=== PATIENT | female | born 1975 | race African-American/Black ===

== ENCOUNTER 2018-12-19 09:18 | Day surgery (SDC) | payer OTHER ==
[2018-12-19 10:31] VITALS: BMI 32.1
[2018-12-19] MEDS ORDERED: BENZOIN/ALOE VERA/STORAX/TOLU 58 ML BOTTLE ONE (11:10)
[2018-12-19] MEDS ORDERED: THROMBIN (RECOMBINANT) 5,000 UNIT VIAL TP ONE (11:10)
[2018-12-19] MEDS ORDERED: fentaNYL CITRATE 250 MCG/5 ML VIAL ONE (11:33)
[2018-12-19] MEDS ORDERED: MIDAZOLAM HCL 2 MG/2 ML SINGLE DOSE VIAL ONE (11:33)
[2018-12-19] MEDS ORDERED: SUCCINYLCHOLINE CHLORIDE 200 MG/10 ML VIAL ONE (11:53)
--- NOTE | 2018-12-19 12:02 | PN ---
Progress Note (short form) - Note Progress Note: 43F presented for C4-5, C5-C6 anterior cervical discectomy and instrumented fusion. Case cancelled due to difficulty of intubation and anticipated post-operative swelling. Pt. will be observed in PACU and will be discharged home when airway is deemed stable per anesthesia team. Surgery will be rescheduled for a later date. Chago David MD (Orthopaedic Surgery).
--- NOTE | 2018-12-19 12:04 | OP ---
Operative Note - Note: Operative Date: 12/19/18 Pre-Operative Diagnosis: 1. C4-C5, C5-C6 intervertebral disc herniations with radiculopathy. 2. Cervical spinal stenosis with myelopathy. 3. Axial instability cervical spine Operation: C4-C5, C5-C6 ACDF Implants: C4-C5 cage: C5-C6 cage: Plae: Post-Operative Diagnosis: Same as Pre-op Surgeon: Chago David Technical Assistance Consultant: Zane David Anesthesiologist/ANTHROPOLOGIST PHYSICAL: Michael Hopkins Anesthesia: General Specimens Removed: C4-C5, C5-C6 discs Estimated Blood Loss (mls): 30 Fluid Volume Replaced (mls): 1,000 (Crystalloid) Operative Report Dictated: Yes
[2018-12-19] MEDS ORDERED: RACEPINEPHRINE IH SOL 2.25% 11.25 MG/0.5 ML VIAL NEB PRN (12:53)
[2018-12-19] MEDS ORDERED: ONDANSETRON 4 MG/2 ML VIAL IVPUSH PRN (12:53)
[2018-12-19] MEDS ORDERED: LACTATED RINGERS SOLUTION 1,000 ML IV SCH (13:00)
[2018-12-19 14:56] VITALS: TEMP 98.2
[2018-12-19 14:57] VITALS: BP 118/84; PULSE 72
[2018-12-20] MEDS ORDERED: LEVOTHYROXINE PO SCH ×2 (07:00→10:00)
--- NOTE | 2018-12-20 07:46 | OP ---
DATE OF OPERATION: 12/19/2018 The patient was planned to undergo C4-C5 and C5-C6 anterior cervical discectomy and instrumented fusion today. 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 This combination led to difficulty with intubation. After multiple unsuccessful attempts at passing endotracheal tube, discussion was held with the anesthesiology team as to whether they should proceed with a fiberoptic intubation. My concern was that the failed attempts at intubation would render the patient with increased swelling of the airway and associated soft tissue structures. This, in combination with elective cervical spine surgery could have led to enough local soft tissue swelling postoperatively that the airway may have been compromised, and the patient may have needed further airway protection in an ICU setting. For these reasons, we elected to cancel the surgical procedure for today. The patient will be monitored in the PACU. When her airway is deemed stable by the anesthesiology team, she will be discharged home. We will see her back in the office in the outpatient setting, and we will electively schedule cervical spine surgery in the future. This decision was made in conjunction with three attending anesthesiologists and in conjunction with senior orthopedic surgeon. MD BRIGID Bettencourt/[id number]
[2018-12-26] MEDS ORDERED: ERGOCALCIFEROL (VITAMIN D2) 50,000 UNIT CAPSULE (FP) PO SCH (10:00)
== END 2018-12-19 16:30 | disposition home or self-care (01) ==
LOC: FM/S 09:18 → UNDOADMIN 09:18 → FASUSAT 09:18 → EDSTATUS 12:00 → UNDODISIN 16:30 → FASUSAT 16:30
PROVIDERS: ATTEND Orthopaedic Surgery Orthopaedic Surgery of the Spine
PROC: 0RB30ZZ Excision of Cervical Vertebral Disc, Open Approach (ICD-10-PCS; principal; 2018-12-19 12:00)
DX: Z53.09 Procedure and treatment not carried out because of other contraindication (principal); M50.122 Cervical disc disorder at C5-C6 level with radiculopathy
CPT/HCPCS: 84703

== ENCOUNTER 2019-04-15 06:11 | Inpatient (IN) | payer OTHER ==
[2019-04-12 15:41] VITALS: BMI 32.5
[2019-04-15 06:53] LABS: ALBUMIN 3.5 g/dl (3.4-5.0); BILIRUBIN,TOTAL 0.4 mg/dL (0.2-1); BLOOD UREA NITROGEN 18.7 mg/dL (7-18); CALCIUM 9.4 mg/dL (8.5-10.1); CREATININE 0.7 mg/dL (0.55-1.3); POTASSIUM 4.6 mmol/L (3.5-5.1); TOT PROT 7.4 g/dl (6.4-8.2)
[2019-04-15] MEDS ORDERED: HEPARIN NA (PORCINE) 5,000 UNITS/ML 1ML VIAL ONE (07:03)
[2019-04-15] MEDS ORDERED: THROMBIN (BOVINE) 5,000 UNIT VIAL TP ONE (07:03)
[2019-04-15] MEDS ORDERED: BENZOIN TINCTURE SWABSTICK TP ONE (07:03)
[2019-04-15] MEDS ORDERED: PROPOFOL 20 ML ONE ×14 (07:23→10:31)
[2019-04-15] MEDS ORDERED: SUCCINYLCHOLINE CHLORIDE 200 MG/10 ML SYRINGE ONE (07:24)
[2019-04-15] MEDS ORDERED: KETAMINE HCL 200 MG/20 ML VIAL ONE (07:24)
[2019-04-15] MEDS ORDERED: ceFAZolin SODIUM 1 GM VIAL ONE ×2 (07:27→17:31)
[2019-04-15] MEDS ORDERED: DEXAMETHASONE SOD PHOSPHATE 4 MG/1 ML VIAL ONE ×3 (07:27→10:40)
[2019-04-15] MEDS ORDERED: KETOROLAC TROMETHAMINE 30 MG/1 ML VIAL ONE (07:27)
[2019-04-15] MEDS ORDERED: LIDOCAINE HCL/PF 2% SDV 5ML VIAL ONE ×2 (07:27→10:40)
[2019-04-15] MEDS ORDERED: ONDANSETRON 4 MG/2 ML VIAL ONE ×2 (07:27→10:40)
[2019-04-15] MEDS ORDERED: SODIUM CHLORIDE 0.9% P/F 10 ML VIAL IJ ONE (07:27)
[2019-04-15] MEDS ORDERED: MIDAZOLAM HCL 2 MG/2 ML SINGLE DOSE VIAL ONE ×2 (07:32)
[2019-04-15] MEDS ORDERED: DEXMEDETOMIDINE HCL 200 MCG/2 ML IVPB ONE (07:52)
[2019-04-15] MEDS ORDERED: VANCOMYCIN 1,000 MG VIAL (RESTRICTED TO ID ONLY) IVPB ONE ×2 (07:58→09:04)
--- NOTE | 2019-04-15 08:03 | HP ---
History & Physical Update - History History: No Change - Physical Physical: No Change - Assessment Assessment: No Change - Plan Plan: No Change (no change since last visit with Dr David 04/14/19)
[2019-04-15] MEDS ORDERED: ceFAZolin SODIUM 1 GM VIAL IVPB ONE (08:58)
[2019-04-15] MEDS ORDERED: EPHEDRINE SULFATE/0.9% NACL/PF 50 MG/10 ML SYRINGE NR ONE (09:12)
[2019-04-15] MEDS ORDERED: LABETALOL HCL 5 MG/1 ML (100MG/20 ML VIAL) ONE (09:43)
[2019-04-15] MEDS ORDERED: TRANEXAMIC ACID 1000 MG/10 ML VIAL ONE (10:49)
[2019-04-15] MEDS ORDERED: oxyCODONE HCL 5 MG TABLET PO PRN ×2 (11:07)
[2019-04-15] MEDS ORDERED: ACETAMINOPHEN 325 MG TABLET (FP) PO PRN (11:07)
[2019-04-15] MEDS ORDERED: ONDANSETRON 4 MG/2 ML VIAL IVPUSH PRN (11:07)
[2019-04-15] MEDS ORDERED: diphenhydrAMINE HCL 25 MG CAPSULE (FP) PO PRN (11:07)
[2019-04-15] MEDS ORDERED: LACTATED RINGERS SOLUTION 1,000 ML/1,000 ML INFUS.BAG IV SCH (11:15)
--- NOTE | 2019-04-15 11:34 | OP ---
Operative Note - Note: Operative Date: 04/15/19 Pre-Operative Diagnosis: Cervical stenosis Operation: C5-C6 anterior cervical discectomy and fusion Post-Operative Diagnosis: Same as Pre-op Surgeon: Chago David Solid Glass Rod Dowel Machine Operator: Yoon Flower Anesthesiologist/LOCAL DRIVER: Enmanuel Avila Anesthesia: General Specimens Removed: C5,6 disc Estimated Blood Loss (mls): 100 Drains & Tubes with Location: ISMA drain at anterior neck Drains, Volume Out (mls): 100 (urine) Fluid Volume Replaced (mls): 2,000 Operative Report Dictated: Yes
--- NOTE | 2019-04-15 11:39 | SURG ---
Surgery Clean Room Technician Note Clean Room Technician: Yoon Flower PA-C Date of Service: 04/15/19 Diagnosis: cervical stenosis Procedure: C5-C6 anterior cervical discectomy and fusion I was present for the entirety of the operative procedure. For further detail, please refer to operative report.
[2019-04-15] MEDS: MORPHINE SULFATE 2 MG/ML VIAL IVPUSH PRN ×2 (13:24→20:06)
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
--- NOTE | 2019-04-15 14:54 | OP ---
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 OPERATION PERFORMED: C5-6 anterior cervical diskectomy and fusion. ANESTHESIA: General. ANTIBIOTICS GIVEN: Kefzol 2 g, 1 g vancomycin, 10 mg of Decadron, 1 g tranexamic acid given. OPERATION DETAILS: Patient correctly identified. Brought to the operating room. Cervical spine was prepped and draped in the routine manner with Betadine scrub solution, wiped off with alcohol, DuraPrep applied. Patient in the supine position was subjected to an awake fiberoptic intubation, which proceeded to an uneventful intubation. A rolled towel was placed behind the scapulae. The neck was extended. The previous surgery scar in the neck anteriorly for the previous thyroidectomy was noted. The tissues were thickened and indurated. The skin was cleansed with Betadine scrub solution, wiped off with alcohol, DuraPrep applied, the window drape applied. Time-out was called. INDICATIONS: This lady has developed ongoing intractable axial neck discogenic disease of the cervical spine but associated with it some slowly progressive, increasing myelopathic clinical findings noted. The difficulty of decision here was based on the imaging to correlate with the clinical picture. A careful preoperative clinical evaluation today prior to any surgical intervention revealed the presence of C6 radiculopathy on the right, but in association with this, the MRIs revealed a capacious canal, the disk space narrowing worse at C5-6, but I planned to evaluate the C4-5 disk based on the anterior appearance of the vertebral structures indicating discogenic disease. This would help me delineate whether to proceed with a C4-5 diskectomy as well. I booked her with the consent to state C4-5 and C5-6. An oblique incision was made at the lines of Eliz well above the thyroid scar. Even with this is significant scarring of the soft tissue deep to the platysma. The platysma was split transversely. Once this had been performed, the investing layer of fascia was opened proximally and distally. One large epidural vein was ligated and tied off. The skin and subcutaneous tissues were oozing and moist accordingly. This visceral and vascular plane was opened, and with finger palpation, the anterior body was carefully palpated. The large lump of calcified disk was noted at the C5-6 level. We knew this because a mayank of needle was placed into that disk, and a lateral fluoroscopic x-ray revealed the 5-6 as the major problem. Looking at the new x-rays today on the x-ray table taken immediately reveal the presence of significant bone changes at C5-6. No significant bone changes seen in C4-5. The decision was then borne out at that point in time to not do anything to C4-5, leave it as C4, 5, 6 level. This is where the pathology is. The dissection was taken continued furtherly by lifting the longus coli with unipolar Bovie off the bone. Hemostasis was achieved. The problem is the tissues were very moist and oozing. I repeated this as ultimately the blood loss for this case was 110 mL. The large anterior osteophyte was removed. The disk was then resected using curettes as well as a [place]o bur. A rectangle was cut into the bone bed. Broaddus distractors were utilized to help with retraction as well as distraction. Once the distraction device helped open up the rectangle for the interbody space, the uncovertebral joints were resected. The dissection was taken down right down to the posterior longitudinal ligament. The theca was completely exposed from right to left accordingly. Epidural bleeding was prodigious. Gelfoam with thrombin with Gelfoam inserted into the interbody space. This brought about adequate control. The wounds were thoroughly lavaged throughout the procedure. A size 7 cage, Fortilink cage, packed with bone marrow putty was inserted. This was placed into the interbody space. The Capsar pins were released. Ligamentotaxis brought about solid fixation of the cage within the confines of the interbody space. A size 16 plate was applied. This was a Precision plate. Gave very adequate solid fixation. X-rays were taken on the table. Lateral AP revealed excellent seating of implants. No complications with the neuromonitoring at all. Wounds were thoroughly lavaged. A 1/8-inch drain was inserted. This was because of the general nature of the ooze in the tissues. The skin was closed with the investing layer of fascia in 1 layer with 2-0 Vicryl, subcutaneous 3-0 Vicryl, skin 3-0 Monocryl with Steri-Strips. This was an intracutaneous stitch. Operation went well. No complications. Postoperatively, patient moving all limbs and very comfortable. MD BRIGID Myrick/[id number]
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
[2019-04-15] MEDS: DOCUSATE SODIUM 100 MG CAPSULE (FP) PO SCH ×2 (16:59→21:49)
[2019-04-15] MEDS ORDERED: DEXTROSE 5%-WATER - 50 ML IVPB ONE (17:31)
[2019-04-15] MEDS: CEFAZOLIN 1 GM in DEXTROSE 5%-WATER - 50 ML IVPB SCH (17:54)
[2019-04-15 21:47] LABS: BASO % 0.1 % (0-2.0); HEMATOCRIT 35.1 % (32.4-45.2); HEMOGLOBIN 11.3 GM/dL (10.7-15.3); LYMPH % 5.1 % (8-40); MCH 28.7 pg (25.7-33.7); MCHC 32.4 g/dl (32.0-36.0); MEAN CELL VOLUME 88.6 fl (80-96); MEAN PLT VOLUME 9.9 fl (7.5-11.1); MONO % 3.7 % (3.8-10.2); NEUT % 91.1 % (42.8-82.8); PLATELET COUNT 193 K/MM3 (134-434); RBC 3.96 M/mm3 (3.60-5.2); RDW 14.3 % (11.6-15.6); WHITE BLOOD COUNT 12.1 K/mm3 (4.0-10.0)
[2019-04-15] MEDS: MUPIROCIN 2% TOPICAL OINTMENT FOR DECOLONIZATION NS SCH (21:59)
[2019-04-15] MEDS ORDERED: CHLORHEXIDINE GLUCONATE 4% CLEANSER FOR DECOLONIZATION TP SCH (22:00)
[2019-04-15 23:06] LABS: SMUDGE CELLS FEW
[2019-04-15 23:07] LABS: ANISOCYTOSIS 1+; PLATELET ESTIMATE NORMAL
[2019-04-16] MEDS: MORPHINE SULFATE 2 MG/ML VIAL IVPUSH PRN ×3 (00:48→09:52)
[2019-04-16] MEDS ORDERED: CEFAZOLIN 1 GM in DEXTROSE 5%-WATER - 50 ML IVPB SCH (06:30)
[2019-04-16] MEDS ORDERED: ceFAZolin SODIUM 1 GM VIAL ONE (06:38)
[2019-04-16] MEDS ORDERED: DEXTROSE 5%-WATER - 50 ML IVPB ONE (06:38)
[2019-04-16] MEDS: DOCUSATE SODIUM 100 MG CAPSULE (FP) PO SCH ×2 (06:45→14:36)
[2019-04-16] MEDS: CEFAZOLIN 1 GM in DEXTROSE 5%-WATER - 50 ML IVPB SCH (06:46)
[2019-04-16 06:49] LABS: HEMATOCRIT 33.2 % (32.4-45.2); MCH 29.3 pg (25.7-33.7); MCHC 33.3 g/dl (32.0-36.0); MEAN PLT VOLUME 10.3 fl (7.5-11.1); PLATELET COUNT 192 K/MM3 (134-434); RBC 3.77 M/mm3 (3.60-5.2); RDW 14.1 % (11.6-15.6); WHITE BLOOD COUNT 13.1 K/mm3 (4.0-10.0)
[2019-04-16 06:50] LABS: BLOOD UREA NITROGEN 10.8 mg/dL (7-18); CALCIUM 8.8 mg/dL (8.5-10.1); CREATININE 0.5 mg/dL (0.55-1.3); PHOSPHOROUS 4.3 mg/dL (2.5-4.9)
[2019-04-16] MEDS ORDERED: LEVOTHYROXINE PO SCH ×2 (07:00→10:00)
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
[2019-04-16] MEDS ORDERED: BENZOCAINE/MENTH/CETYLPYRD CL 1 EACH LOZENGE MM PRN (09:34)
[2019-04-16] MEDS ORDERED: FOLIC ACID 1 MG TABLET (FP) PO SCH (10:00)
[2019-04-16] MEDS ORDERED: FERROUS SO4 325 MG TABLET (FP) PO SCH (10:00)
--- NOTE | 2019-04-16 10:03 | PN ---
Progress Note (short form) - Note Progress Note: surgery POD # 1 C5-C6 anterior cervical discectomy and fusion patient seen and examined at the bedside with no complaints. Patient has been tolerating her soft diet but has not been OOB to ambulate yet. She denies any CP, SOB,N/V, headache, fever or chills. Vital Signs Temp 98.4 F 04/16/19 06:00 Pulse 92 H 04/16/19 06:00 Resp 19 04/16/19 06:00 BP 145/91 04/16/19 06:00 Pulse Ox 100 04/15/19 20:54 Intake & Output 04/15/19 04/15/19 04/16/19 11:59 23:59 11:59 Intake Total 1450 1050 1376 Output Total 327 963 2300 Balance 1240 740 -1124 Intake: IV 1450 1000 1326 LACTATED RINGERS SOLUTION 1000 1326 1,000 ml In 1,000 ml @ 125 mls/hr IV ASDIR ALKA Rx#:[id number] IVPB 50 50 Output: Drainage 10 0 Davol hemovac 10 0 Urine 807 799 1662 Bassett 2500 Estimated Blood Loss 110 Other: Bowel Movement No No CBC, BMP 04/16/19 05:15 04/16/19 05:15 PE: A&Ox3, NAD Unlabored resp on RA incision- anterior neck, c/d/i with steri strips in place and surrounding tissue intact with no tracking erythema and minimal edema, Trachea midline, Drain removed wtith tip fully intact and drain site clean and dry with no active d/c, 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 Problem List - Problems (1) S/P cervical spinal fusion Assessment/Plan: POD #1 Patient doing well. -d/c bassett- TOV - OOB with PT -diet as tolerated -encourage IS -d/c planning for home possibly today pending TOV and PT evaluation Code(s): Z98.1 - ARTHRODESIS STATUS
[2019-04-16] MEDS: MUPIROCIN 2% TOPICAL OINTMENT FOR DECOLONIZATION NS SCH (10:07)
--- NOTE | 2019-04-16 12:06 | PN ---
Teaching Attending Note Name of Resident: Rachele Buckley ATTENDING PHYSICIAN STATEMENT I saw and evaluated the patient. I reviewed the resident's note and discussed the case with the resident. I agree with the resident's findings and plan as documented. SUBJECTIVE: Pt seen and examined in the ICU. Pain relatively controlled. Some odynophagia. Denies shortness of breath. OBJECTIVE: Vital Signs Period Temp Pulse Resp BP Sys/Jo Pulse Ox Last 24 Hr 98.2 F-99.0 F 92-106 13-21 126-145/65-91 98-100 Intake & Output 04/13/19 04/14/19 04/15/19 04/16/19 23:59 23:59 23:59 23:59 Intake Total 2500 1376 Output Total 520 2500 Balance 1979 -1123 Gen: NAD at rest Heart: RRR Lung: decreased breath sounds at the bases Abd: soft, nontender Ext: no edema CBC, BMP 04/16/19 05:15 04/16/19 05:15 Active Medications Acetaminophen (Tylenol -) 650 mg PO Q6H PRN PRN Reason: fever or pain Benzocaine/Menthol (Cepacol Lozenge -) 1 each MM PRN PRN PRN Reason: SORE THROAT Chlorhexidine Gluconate (Hibiclens For Decolonization -) 1 applic TP HS [facility] Last Admin: 04/15/19 22:00 Dose: 1 applic Diphenhydramine HCl (Benadryl -) 25 mg PO Q6H PRN PRN Reason: FOR ITCHING Docusate Sodium (Colace -) 100 mg PO TID [facility] Last Admin: 04/16/19 06:45 Dose: 100 mg Ferrous Sulfate (Feosol -) 325 mg PO DAILY [facility] Last Admin: 04/16/19 10:07 Dose: 325 mg Folic Acid (Folic Acid -) 1 mg PO DAILY [facility] Last Admin: 04/16/19 10:07 Dose: 1 mg Lactated Ringer's (Lactated Ringers Solution) 1,000 ml in 1,000 mls @ 125 mls/ hr IV ASDIR [facility] Last Admin: 04/15/19 12:30 Dose: 0 mls Levothyroxine Sodium 300 mcg/ (Levothyroxine Sodium 25 mcg) 325 mcg PO DAILY@ 0700 [facility] Last Admin: 04/16/19 06:46 Dose: 325 mcg Morphine Sulfate (Morphine Sulfate) 2 mg IVPUSH Q4H PRN PRN Reason: breakthrough pain Last Admin: 04/16/19 09:52 Dose: 2 mg Mupirocin (Bactroban Ointment (For Decolonization) -) 1 applic NS BID [facility] Stop: 04/20/19 21:59 Last Admin: 04/16/19 10:07 Dose: 1 applic Ondansetron HCl (Zofran Injection) 4 mg IVPUSH Q6H PRN PRN Reason: NAUSEA Oxycodone HCl (Roxicodone -) 5 mg PO Q4H PRN PRN Reason: PAIN LEVEL 1-5 Oxycodone HCl (Roxicodone -) 10 mg PO Q4H PRN PRN Reason: PAIN LEVEL 6-10 ASSESSMENT AND PLAN: Cervical Stenosis s/p C5-C6 ACDF POD #1 Hypothyroidism - pain control - incentive spirometry - d/c bassett - PO as tolerated - OOB to chair - DVT prophylaxis - can monitor on floor if ok with surgery
--- NOTE | 2019-04-16 12:50 | PN ---
Physical Exam: SUBJECTIVE: Patient seen and examined at the bedside, reports she still has some pain on swallowing but she is doing well. OBJECTIVE: Vital Signs Period Temp Pulse Resp BP Sys/Jo Pulse Ox Last 24 Hr 98.2 F-98.6 F 92-106 16-21 131-145/78-91 98-100 GENERAL: The patient is awake, alert, and fully oriented, in no acute distress. HEAD: Normal with no signs of trauma. EYES: PERRL, extraocular movements intact, sclera anicteric, conjunctiva clear. No ptosis. ENT: Ears normal, nares patent, oropharynx clear without exudates, moist mucous membranes. NECK: gauze wrapped over cervical region LUNGS: Breath sounds equal, clear to auscultation bilaterally. No wheezes, and no crackles. No accessory muscle use. HEART: Tachycardic in regular rhythm, normal S1 and S2 with 3/6 systolic murmur , heard best in left 2nd intercostal space, no rub or gallop. ABDOMEN: Soft, nontender, not distended, normoactive bowel sounds, no guarding, no rebound. EXTREMITIES: 2+ dorsalis pedis pulses, warm, well-perfused. No peripheral edema. SCD's in place. NEUROLOGICAL: Cranial nerves II through XII grossly intact. Normal speech, gait not observed. PSYCH: Normal mood, normal affect. SKIN: Warm, dry, normal turgor Laboratory Results - last 24 hr 04/15/19 04/16/19 04/16/19 21:00 05:15 05:15 WBC 12.1 H 13.1 H RBC 3.96 3.77 Hgb 11.3 11.0 Hct 35.1 33.2 MCV 88.6 88.0 MCH 28.7 29.3 MCHC 32.4 33.3 RDW 14.3 14.1 Plt Count 193 192 MPV 9.9 10.3 Absolute Neuts (auto) 11.0 H Neutrophils % 91.1 H Neutrophils % (Manual) 91.0 H Lymphocytes % 5.1 L Lymphocytes % (Manual) 4.0 L Monocytes % 3.7 L Monocytes % (Manual) 5 Eosinophils % 0.0 Basophils % 0.1 Nucleated RBC % 0 Smudge Cells Few Hypochromia 1+ Platelet Estimate Normal Platelet Comment No clumping noted Anisocytosis 1+ Microcytosis 1+ Sodium 139 Potassium 4.0 Chloride 104 Carbon Dioxide 29 Anion Gap 6 L BUN 10.8 Creatinine 0.5 L Est GFR (CKD-EPI)AfAm 139.33 Est GFR (CKD-EPI)NonAf 120.22 Random Glucose 107 H Calcium 8.8 Phosphorus 4.3 Magnesium 2.0 Active Medications Generic Name Dose Route Start Last Admin Trade Name Freq PRN Reason Stop Dose Admin Acetaminophen 650 mg 04/15/19 11:07 Tylenol - PO Q6H PRN fever or pain Benzocaine/Menthol 1 each 04/16/19 09:34 Cepacol Lozenge - MM PRN PRN SORE THROAT Chlorhexidine Gluconate 1 applic 04/15/19 22:00 04/15/19 22:00 Hibiclens For Decolonization - TP 1 applic HS [facility] Administration Diphenhydramine HCl 25 mg 04/15/19 11:07 Benadryl - PO Q6H PRN FOR ITCHING Docusate Sodium 100 mg 04/15/19 14:00 04/16/19 06:45 Colace - PO 100 mg TID [facility] Administration Ferrous Sulfate 325 mg 04/16/19 10:00 04/16/19 10:07 Feosol - PO 325 mg DAILY [facility] Administration Folic Acid 1 mg 04/16/19 10:00 04/16/19 10:07 Folic Acid - PO 1 mg DAILY [facility] Administration Lactated Ringer's 1,000 ml in 1,000 mls @ 125 mls/hr 04/15/19 11:15 04/15/19 12:30 Lactated Ringers Solution IV 0 mls ASDIR [facility] Administration Levothyroxine Sodium 300 mcg/ 325 mcg 04/16/19 07:00 04/16/19 06:46 Levothyroxine Sodium 25 mcg PO 325 mcg DAILY@0700 [facility] Administration Morphine Sulfate 2 mg 04/15/19 11:07 04/16/19 09:52 Morphine Sulfate IVPUSH 2 mg Q4H PRN Administration breakthrough pain Mupirocin 1 applic 04/15/19 22:00 04/16/19 10:07 Bactroban Ointment (For Decolonization) - NS 04/20/19 21:59 1 applic BID [facility] Administration Ondansetron HCl 4 mg 04/15/19 11:07 Zofran Injection IVPUSH Q6H PRN NAUSEA Oxycodone HCl 5 mg 04/15/19 11:07 Roxicodone - PO Q4H PRN PAIN LEVEL 1-5 Oxycodone HCl 10 mg 04/15/19 11:07 Roxicodone - PO Q4H PRN PAIN LEVEL 6-10 ASSESSMENT/PLAN: 43 y/o F with PMHx of Hypothyroidism (s/p Thyroid Ca with radioactive iodine and resection) and breast Ca (s/p b/l mastectomy) presents with upper extremity pain who underwent a C5-C6 anterior cervical discectomy and fusion. #C5-C6 anterior cervical discectomy and fusion -Analgesia via Acetaminophen, Morphine, Oxycodone -Antiemesis via ondansetron -Continue IV Hydration -Incentive spirometer -Further perioperative care as per Orthopedic sx (Dr. David) - D/C bassett - PT - OOB to chair #Hypothyroidism -Continue Levothyroxine 325mcg #FEN -LR @ 125 -Replete Lytes PRN -Advance diet as tolerated #PPx -DVT: SCDs Dispo: Can continue monitoring on floor of surgery approves Visit type - Emergency Visit Emergency Visit: No - New Patient This patient is new to me today: Yes Date on this admission: 04/16/19 - Critical Care Critical Care patient: Yes Total Critical Care Time (in minutes): 40 Critical Care Statement: The care of this patient involved high complexity decision making to prevent further life threatening deterioration of the patient 's condition and/or to evaluate & treat vital organ system(s) failure or risk of failure. - Discharge Referral Referred to [facility] Med P.C.: No ATTENDING PHYSICIAN STATEMENT I saw and evaluated the patient. I reviewed the resident's note and discussed the case with the resident. I agree with the resident's findings and plan as documented. SUBJECTIVE: OBJECTIVE: ASSESSMENT AND PLAN:
[2019-04-16 14:33] VITALS: TEMP 98.4
--- NOTE | 2019-04-16 16:01 | PN ---
Physical Exam: SUBJECTIVE: Patient seen and examined at bedside. she states her pain is well controlled. OBJECTIVE: Vital Signs Period Temp Pulse Resp BP Sys/Jo Pulse Ox Last 24 Hr 98.2 F-98.6 F 92-106 17-26 131-147/78-96 100-100 GENERAL: The patient is awake, alert, and fully oriented, in no acute distress. LUNGS: Breath sounds equal, clear to auscultation bilaterally, no wheezes, no crackles, no accessory muscle use. HEART: Regular rate and rhythm, S1, S2 without murmur, rub or gallop. ABDOMEN: Soft, nontender, nondistended, normoactive bowel sounds, no guarding EXTREMITIES: 2+ pulses, warm, well-perfused, no edema. SKIN: Warm, dry, normal turgor, no rashes or lesions noted Laboratory Results - last 24 hr 04/15/19 04/16/19 04/16/19 21:00 05:15 05:15 WBC 12.1 H 13.1 H RBC 3.96 3.77 Hgb 11.3 11.0 Hct 35.1 33.2 MCV 88.6 88.0 MCH 28.7 29.3 MCHC 32.4 33.3 RDW 14.3 14.1 Plt Count 193 192 MPV 9.9 10.3 Absolute Neuts (auto) 11.0 H Neutrophils % 91.1 H Neutrophils % (Manual) 91.0 H Lymphocytes % 5.1 L Lymphocytes % (Manual) 4.0 L Monocytes % 3.7 L Monocytes % (Manual) 5 Eosinophils % 0.0 Basophils % 0.1 Nucleated RBC % 0 Smudge Cells Few Hypochromia 1+ Platelet Estimate Normal Platelet Comment No clumping noted Anisocytosis 1+ Microcytosis 1+ Sodium 139 Potassium 4.0 Chloride 104 Carbon Dioxide 29 Anion Gap 6 L BUN 10.8 Creatinine 0.5 L Est GFR (CKD-EPI)AfAm 139.33 Est GFR (CKD-EPI)NonAf 120.22 Random Glucose 107 H Calcium 8.8 Phosphorus 4.3 Magnesium 2.0 Current Medications Acetaminophen (Tylenol -) 650 mg PO Q6H PRN PRN Reason: fever or pain Benzocaine/Menthol (Cepacol Lozenge -) 1 each MM PRN PRN PRN Reason: SORE THROAT Chlorhexidine Gluconate (Hibiclens For Decolonization -) 1 applic TP HS [facility] Last Admin: 04/15/19 22:00 Dose: 1 applic Diphenhydramine HCl (Benadryl -) 25 mg PO Q6H PRN PRN Reason: FOR ITCHING Docusate Sodium (Colace -) 100 mg PO TID [facility] Last Admin: 04/16/19 14:36 Dose: 100 mg Ferrous Sulfate (Feosol -) 325 mg PO DAILY [facility] Last Admin: 04/16/19 10:07 Dose: 325 mg Folic Acid (Folic Acid -) 1 mg PO DAILY [facility] Last Admin: 04/16/19 10:07 Dose: 1 mg Lactated Ringer's (Lactated Ringers Solution) 1,000 ml in 1,000 mls @ 125 mls/ hr IV ASDIR [facility] Last Admin: 04/15/19 12:30 Dose: 0 mls Levothyroxine Sodium 300 mcg/ (Levothyroxine Sodium 25 mcg) 325 mcg PO DAILY@ 0700 [facility] Last Admin: 04/16/19 06:46 Dose: 325 mcg Morphine Sulfate (Morphine Sulfate) 2 mg IVPUSH Q4H PRN PRN Reason: breakthrough pain Last Admin: 04/16/19 09:52 Dose: 2 mg Mupirocin (Bactroban Ointment (For Decolonization) -) 1 applic NS BID [facility] Stop: 04/20/19 21:59 Last Admin: 04/16/19 10:07 Dose: 1 applic Ondansetron HCl (Zofran Injection) 4 mg IVPUSH Q6H PRN PRN Reason: NAUSEA Oxycodone HCl (Roxicodone -) 5 mg PO Q4H PRN PRN Reason: PAIN LEVEL 1-5 Oxycodone HCl (Roxicodone -) 10 mg PO Q4H PRN PRN Reason: PAIN LEVEL 6-10 ASSESSMENT/PLAN: This is a 43 y/o F with a PMH of Hypothyroidism (s/p Thyroid Ca with radioactive iodine and resection) and breast Ca (s/p b/l mastectomy) who presents with upper extremity pain. Pt is POD 1 for C5-C6 anterior cervical discectomy and fusion 2/2 cervical stenosis. Neurology - neurologically intact, AAO x 3 Orthopedic : s/p C5-C6 anterior cervical discectomy and fusion - c/w pain control; morphine 2mg IVP Q4H PRN as well as oxycodone PO - zofran prn for nausea - tylenol for temp and pain - benadryl for itch prn post anesthesia - docusate 100 TID for constipation due to pain medication side effect. - 325 Ferrous sulfate daily Respiratory - maintain SaO2 >90% - incentive spirometry Endocrine: Hypothyroidism - c/w levothyroxine 325mcg. ID: post-op coverage - Ancef - monitoring for any signs of infn - incentive divya F/E/N - monitoring lytes - diet resumed DVT PPX: SCD's Dispo: transfer to medicine / home - as per surgery Visit type - Emergency Visit Emergency Visit: No - New Patient This patient is new to me today: Yes Date on this admission: 04/16/19 - Critical Care Critical Care patient: Yes Total Critical Care Time (in minutes): 36 Critical Care Statement: The care of this patient involved high complexity decision making to prevent further life threatening deterioration of the patient 's condition and/or to evaluate & treat vital organ system(s) failure or risk of failure. ATTENDING PHYSICIAN STATEMENT I saw and evaluated the patient. I reviewed the resident's note and discussed the case with the resident. I agree with the resident's findings and plan as documented. SUBJECTIVE: OBJECTIVE: ASSESSMENT AND PLAN:
[2019-04-16] MEDS ORDERED: PT OWN MED DRAWER 7, Y5N ONE (16:21)
--- NOTE | 2019-04-16 18:00 | PATH ---
Surgical Pathology Report Patient Name: MARY SEARS [facility]. Rec. #: [id number] /Age/Gender: 1975 (Age: 43) / F Account: [id number] Location: [facility] Taken: 04/15/2019 Received: 04/15/2019 Reported: 04/16/2019 Physicians: Zane David M.D. Specimen(s) Received C5/6 DISC Clinical History Cervical disc disorder Final Diagnosis C5/6 DISC, DISCECTOMY: FRAGMENTS OF CARTILAGE AND BONE WITH FOCAL DEGENERATIVE CHANGE. Electronically Signed Rubia Mckeon M.D. Gross Description Received in formalin, labeled " C5/6 disc" are multiple fibrotic, cartilaginous and bone tissue measuring 2.5 x 2.5 x 0.2 cm. in aggregate. Undercoat Sprayer sections are submitted in one cassette after decalcification.
[2019-04-16 18:02] VITALS: BP 138/90; PULSE 100
--- NOTE | 2019-04-21 20:16 | DS ---
"Physical Exam: SUBJECTIVE: Patient seen and examined, there were no acute events. OBJECTIVE: Last Vital Signs Temp Pulse Resp BP Pulse Ox 98.4 F 100 H 20 138/90 100 04/16/19 14:00 04/16/19 18:00 04/16/19 18:00 04/16/19 18:00 04/16/19 09:00 PHYSICAL EXAM GENERAL: The patient is awake, alert, and fully oriented, in no acute distress. HEAD: Normal with no signs of trauma. EYES: PERRL, extraocular movements intact, sclera anicteric, conjunctiva clear. No ptosis. ENT: Ears normal, nares patent, oropharynx clear without exudates, moist mucous membranes. NECK: gauze wrapped over cervical region LUNGS: Breath sounds equal, clear to auscultation bilaterally. No wheezes, and no crackles. No accessory muscle use. HEART: Tachycardic in regular rhythm, normal S1 and S2 with 3/6 systolic murmur , heard best in left 2nd intercostal space, no rub or gallop. ABDOMEN: Soft, nontender, not distended, normoactive bowel sounds, no guarding, no rebound. EXTREMITIES: 2+ dorsalis pedis pulses, warm, well-perfused. No peripheral edema. SCD's in place. NEUROLOGICAL: Cranial nerves II through XII grossly intact. Normal speech, gait not observed. PSYCH: Normal mood, normal affect. SKIN: Warm, dry, normal turgor LABS CBC, BMP 04/16/19 05:15 04/16/19 05:15 CBC,CMP WBC 13.1 K/mm3 (4.0-10.0) H 04/16/19 05:15 RBC 3.77 M/mm3 (3.60-5.2) 04/16/19 05:15 Hgb 11.0 GM/dL (10.7-15.3) 04/16/19 05:15 Hct 33.2 % (32.4-45.2) 04/16/19 05:15 MCV 88.0 fl (80-96) 04/16/19 05:15 MCH 29.3 pg (25.7-33.7) 04/16/19 05:15 MCHC 33.3 g/dl (32.0-36.0) 04/16/19 05:15 RDW 14.1 % (11.6-15.6) 04/16/19 05:15 Plt Count 192 K/MM3 (134-434) 04/16/19 05:15 MPV 10.3 fl (7.5-11.1) 04/16/19 05:15 Absolute Neuts (auto) 11.0 K/mm3 (1.5-8.0) H 04/15/19 21:00 Neutrophils % 91.1 % (42.8-82.8) H 04/15/19 21:00 Neutrophils % (Manual) 91.0 % (42.8-82.8) H 04/15/19 21:00 Lymphocytes % 5.1 % (8-40) L 04/15/19 21:00 Lymphocytes % (Manual) 4.0 % (8-40) L 04/15/19 21:00 Monocytes % 3.7 % (3.8-10.2) L 04/15/19 21:00 Monocytes % (Manual) 5 % (3.8-10.2) 04/15/19 21:00 Eosinophils % 0.0 % (0-4.5) 04/15/19 21:00 Basophils % 0.1 % (0-2.0) 04/15/19 21:00 Nucleated RBC % 0 % (0-0) 04/15/19 21:00 Smudge Cells Few 04/15/19 21:00 Hypochromia 1+ 04/15/19 21:00 Platelet Estimate Normal 04/15/19 21:00 Platelet Comment No clumping noted 04/15/19 21:00 Anisocytosis 1+ 04/15/19 21:00 Microcytosis 1+ 04/15/19 21:00 Sodium 139 mmol/L (136-145) 04/16/19 05:15 Potassium 4.0 mmol/L (3.5-5.1) 04/16/19 05:15 Chloride 104 mmol/L (98-107) 04/16/19 05:15 Carbon Dioxide 29 mmol/L (21-32) 04/16/19 05:15 Anion Gap 6 MMOL/L (8-16) L 04/16/19 05:15 BUN 10.8 mg/dL (7-18) 04/16/19 05:15 Creatinine 0.5 mg/dL (0.55-1.3) L 04/16/19 05:15 Est GFR (CKD-EPI)AfAm 139.33 04/16/19 05:15 Est GFR (CKD-EPI)NonAf 120.22 04/16/19 05:15 Random Glucose 107 mg/dL (74-106) H 04/16/19 05:15 Calcium 8.8 mg/dL (8.5-10.1) 04/16/19 05:15 Phosphorus 4.3 mg/dL (2.5-4.9) 04/16/19 05:15 Magnesium 2.0 mg/dL (1.8-2.4) 04/16/19 05:15 Total Bilirubin 0.4 mg/dL (0.2-1) 04/15/19 06:20 AST 17 U/L (15-37) 04/15/19 06:20 ALT 24 U/L (13-61) 04/15/19 06:20 Alkaline Phosphatase 70 U/L (45-117) 04/15/19 06:20 Total Protein 7.4 g/dl (6.4-8.2) 04/15/19 06:20 Albumin 3.5 g/dl (3.4-5.0) 04/15/19 06:20 HOSPITAL COURSE: Date of Admission:04/15/19 43 y/o F with PMHx of Hypothyroidism (s/p Thyroid Ca with radioactive iodine and resection) and breast Ca (s/p b/l mastectomy) presents with upper extremity pain who underwent a C5-C6 anterior cervical discectomy and fusion. Patient was managed post operatively in the ICU and had an uncomplicated recovery. Pain was managed with Acetaminophen, Morphine, and Oxycodone. Nausea was managed with onsansetron. The patient's diet was advanced as tolerated once she passed gas. The patient was instructed to use her incentive spirometer and work with PT to get up and out of bed. The patient was discharged home after 1 day in the hospital with plans to follow up with Dr. David as an outpatient. Date of Discharge: 04/21/19 Minutes to complete discharge: 40 Discharge Summary Reason For Visit: CERVICAL DISC DISORDER Condition: Stable - Instructions Diet, Activity, Other Instructions: You were in the hospital to undergo a C5-C6 anterior cervical discectomy and fusion. The surgery went as planned and your post operative recovery was uncomplicated. Please follow Dr. David's post-operative instructions below and follow up in his office within 1 week of discharge. Post Operative Instructions Physical Activity Resume your normal everyday activity as tolerated. No heavy lifting or exercise until seen by your surgeon. You may walk unlimited amounts and climb stairs. You may resume driving the car when you feel safe and comfortable behind the wheel and you are no longer wearing your brace. Do not operate a vehicle while taking narcotic medication. Brace Wear your soft cervical collar for comfort as needed Wound Care Keep your incision clean, dry and covered at all times. Avoid getting your incision wet. Do not submerge incision or apply ointments or creams. Diet There are no dietary restrictions. Eat healthy, high-fiber foods. Drink 6-8 glasses of liquid each day. This will assist in keeping your bowels regular. Pain Management You may take Tylenol or acetaminophen. Any pain prescription medication ordered should be taken as prescribed for moderate to severe pain. Avoid any ibuprofen (Motrin, Advil, Aleve, Toradol, etc) for 3 months unless otherwise discussed with your surgeon. Call Dr David for any of the following: Severe pain not relieved by medication Fever of 101 or higher Excessive bleeding or drainage on dressing Inability to urinate Any chest pain or shortness of breath, seek Emergency Care. Call Dr David's the office to schedule a post-operative appointment for this This report was requested by: Diann Ward | Reference #: [id number] Referrals: Zane David MD [Staff Physician] - Disposition: HOME - Home Medications Comprehensive Discharge Medication List: Ambulatory Orders Ergocalciferol [Vitamin D2] 50,000 unit PO Q7D@1000 05/25/18 Levothyroxine [Synthroid -] 325 mcg PO DAILY 05/25/18 Cyanocobalamin (Vitamin B-12) [Vitamin B12] 2,500 mcg PO DAILY 04/12/19 Cyclobenzaprine HCl [Flexeril -] 5 mg PO TID PRN #21 tablet 04/16/19 Docusate Sodium [Colace -] 100 mg PO BID #14 capsule 04/16/19 Oxycodone HCl 5 mg PO Q6H #30 tablet MDD 8 04/16/19 This patient is new to me today: No Emergency Visit: No Critical Care patient: No - Discharge Referral Referred to [facility] No ATTENDING PHYSICIAN STATEMENT I saw and evaluated the patient. I reviewed the resident's note and discussed the case with the resident. I agree with the resident's findings and plan as documented. SUBJECTIVE: OBJECTIVE: ASSESSMENT AND PLAN:"
--- NOTE | 2019-04-26 16:04 | SURG ---
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 I was present for the entirety of the operative procedure. For further detail, please refer to operative report. Visit type - Case Type Case Type: Scheduled - Emergency Emergency Visit: No - New patient This patient is new to me today: Yes Date on this admission: 04/15/19
== END 2019-04-16 18:53 | disposition home or self-care (01) | DRG 321 ==
LOC: JSAMEDAYSX 06:11 → JICU 12:44
PROVIDERS: ADMIT Internal Medicine; ATTEND Internal Medicine
PROC: 0RT30ZZ Resection of Cervical Vertebral Disc, Open Approach (ICD-10-PCS; 2019-04-15)
PROC: 4A11X4G Monitoring of Peripheral Nervous Electrical Activity, Intraoperative, External Approach (ICD-10-PCS; 2019-04-15)
PROC: B01BZZZ Fluoroscopy of Spinal Cord (ICD-10-PCS; 2019-04-15)
PROC: 0RG10A0 Fusion of Cervical Vertebral Joint with Interbody Fusion Device, Anterior Approach, Anterior Column, Open Approach (ICD-10-PCS; principal; 2019-04-15 08:00)
DX: M50.022 Cervical disc disorder at C5-C6 level with myelopathy (principal); M47.12 Other spondylosis with myelopathy, cervical region; M48.02 Spinal stenosis, cervical region; M47.22 Other spondylosis with radiculopathy, cervical region; E03.9 Hypothyroidism, unspecified; E53.8 Deficiency of other specified B group vitamins; R13.10 Dysphagia, unspecified; Z85.3 Personal history of malignant neoplasm of breast; Z85.850 Personal history of malignant neoplasm of thyroid
CPT/HCPCS: 36415; 76000-TC-FY; 80048; 80053; 83735; 84100; 85025; 85027; 86850; 86900; 86901; 88304-TC; 88311-TC; 94760; 97116-GP; 97162-GP; J1644